=== PATIENT | female | born 1995 | race American Indian/Alaskan Native ===

== ENCOUNTER 2018-12-25 17:58 | Emergency (ER) | payer SELFPAY ==
[2018-12-25 21:25] LABS: Basophils # (Auto) 0.1 K/mm3 (0.0-0.1); Basophils % (Auto) 0.7 % (0.0-1.8); Eosinophils # (Auto) 0.1 K/mm3 (0.0-0.4); Eosinophils % (Auto) 0.9 % (0.0-4.3); Hemoglobin 11.6 gm/dl (10.1-14.3); Lymphocytes % (Auto) 25.4 % (13.4-35.0); Mean Corpuscular HGB Conc 34 % (30-34); Mean Corpuscular Volume 82 fl (79-97); Monocytes # (Auto) 0.4 K/mm3 (0.0-0.8); Monocytes % (Auto) 5.6 % (0.0-7.3); Platelet Count 289 K/mm3 (140-440); Red Blood Count 4.13 M/mm3 (3.65-5.03)
[2018-12-25 21:41] LABS: BUN/Creatinine Ratio 11; Blood Urea Nitrogen 8 mg/dL (7-17); Calcium 9.6 mg/dL (8.4-10.2); Hemolysis Index 13
--- NOTE | 2018-12-25 21:55 | Ultrasound Report ---
US OB <= 14 weeks fetus INDICATION / CLINICAL INFORMATION: abd pain. COMPARISON: None available. FINDINGS: Single intrauterine gestational sac measures 2.9 cm, corresponding to a gestational age of 8 weeks 0 days. An ill-defined structure within the sac appears to represent a pole, measuring approximat mirta 5.2 mm, corresponding to a gestational age of 6 weeks 2 days. heartbeat is thought to be identified, with a rate of 122. Right ovary is negative. Left ovary contains 2 cysts, measuring 4.4 cm and 3.1 cm. No free fluid. IMPRESSION: 1. Probable single, viable intrauterine . Because the pole is so ill-defined, I would suggest follow-up study in one to 2 weeks. Signer Name: Zain Nielsen MD Signed: 12/25/2018 9:51 PM Workstation Name: [id number]
[2018-12-25 23:39] LABS: Bacteria,Urine 1+ /HPF (Negative); Bilirubin,Urine NEG (Negative); Blood,Urine NEG (Negative); Color,Urine Yellow (Yellow); Mucus,Urine 2+ /HPF; Urobilinogen,Urine < 2.0 mg/dL (<2.0)
--- NOTE | 2018-12-25 23:47 | Emergency Department Report ---
ED Abdominal Pain HPI - General Chief Complaint: Abdominal Pain Stated Complaint: 5WKS/SHARP PAIN/CONSTIPATED Time Seen by Provider: 12/25/18 20:54 Source: patient Mode of arrival: Ambulatory Limitations: No Limitations - History of Present Illness Initial Comments: 23-year-old female, reports she is approximately 8 weeks , presents to ED with lower abdominal pain since yesterday. Patient denies any vaginal bleeding or discharge, denies urinary symptoms. Patient reports mild nausea, no vomiting. Also reports constipation last bowel movement 4 days ago. Patient reports no relief with a laxative. MD Complaint: abdominal pain -: days(s) (1) Location: suprapubic Radiation: none Migration to: no migration Severity: mild Quality: cramping Consistency: constant Improves With: nothing Worsens With: nothing Associated Symptoms: nausea, constipation. denies: vomiting, diarrhea, fever, dysuria - Related Data Allergies Allergy/AdvReac Type Severity Reaction Status Date / Time No Known Allergies Allergy Unverified 12/25/18 18:01 ED Review of Systems ROS: Stated complaint: 5WKS/SHARP PAIN/CONSTIPATED Other details as noted in HPI Comment: All other systems reviewed and negative Constitutional: denies: fever Gastrointestinal: abdominal pain, nausea, constipation. denies: vomiting, diarrhea Genitourinary: denies: dysuria, frequency, discharge ED Past Medical Hx - Past Medical History Previous Medical History?: No - Surgical History Past Surgical History?: No ED Physical Exam - General Limitations: No Limitations General appearance: alert, in no apparent distress - Head Head exam: Present: atraumatic, normocephalic - Eye Eye exam: Present: normal appearance, EOMI - ENT ENT exam: Present: mucous membranes moist - Neck Neck exam: Present: normal inspection - Respiratory Respiratory exam: Present: normal lung sounds bilaterally. Absent: respiratory distress - Cardiovascular Cardiovascular Exam: Present: regular rate, normal rhythm - GI/Abdominal GI/Abdominal exam: Present: soft. Absent: distended, tenderness - Extremities Exam Extremities exam: Present: normal inspection - Neurological Exam Neurological exam: Present: alert, oriented X3 - Psychiatric Psychiatric exam: Present: normal affect, normal mood - Skin Skin exam: Present: warm, dry, intact, normal color ED Course Vital Signs 12/25/18 23:56 Temperature 99 F Pulse Rate 72 Respiratory 18 Rate Blood Pressure 128/70 [Left] O2 Sat by Pulse 100 Oximetry ED Medical Decision Making - Lab Data Result diagrams: 12/25/18 21:06 12/25/18 21:06 - Radiology Data Radiology results: report reviewed, image reviewed - Medical Decision Making Possible 6 wk IUP w/ heart rate in the 120s. No adnexal masses present. Pt advised to f/u w/ OB for repeat US. Return precautions given. - Differential Diagnosis ectopic preg, IUP, UTI Critical care attestation.: If time is entered above; I have spent that time in minutes in the direct care of this critically ill patient, excluding procedure time. ED Disposition Clinical Impression: 6 weeks gestation of , Abdominal pain, Constipation Disposition: TO HOME OR SELFCARE Is pt being admited?: No Condition: Stable Instructions: Constipation (ED), High Fiber Diet (ED), Abdominal Pain in (ED) Referrals: RENO ZEPEDA MD [Staff Physician] - 3-5 Days Forms: Work/School Release Form(ED) Time of Disposition: 23:51
[2018-12-25 23:57] VITALS: BP 128/70
== END 2018-12-26 00:22 | disposition home or self-care (01) ==
LOC: ED 17:58
DX: O26.891 Other specified pregnancy related conditions, first trimester (principal); R10.2 Pelvic and perineal pain; K59.00 Constipation, unspecified; Z3A.01 Less than 8 weeks gestation of pregnancy
CPT/HCPCS: 36415; 76801; 80048; 81001; 84702; 85025